=== PATIENT | male | born 1970 | race Caucasian/White ===

== ENCOUNTER 2016-12-06 12:31 | Inpatient (IN) | payer MEDICAID ==
[~2016-12-06] VITALS: Ht 167.6 cm; Wt 62.1 kg
[~2016-12-06 12:31] MED LIST: CAPT12.53 PO; LACT10SO7 PO; LEVO100T GT; RIFA500P3 PO; SEVE800T PO; TIOT18CA3 IH
[2016-12-06] MEDS ORDERED: ADENOSINE 6 MG/2 ML VIAL ONE (12:40)
[2016-12-06] MEDS ORDERED: IV SET PRIMARY 1 EA INFUS.SET MC ONE (12:40)
[2016-12-06] MEDS ORDERED: IV NS 0.9% 1,000 ML ONE (12:40)
[2016-12-06 12:57] LABS: BASOPHILS # (AUTO) 0.1 /CMM (0.0-0.2); BASOPHILS % (AUTO) 1.4 % (0.0-2.0); EOSINOPHILS # (AUTO) 0.3 /CMM (0.0-0.7); EOSINOPHILS % (AUTO) 5.5 % (0.0-6.0); HEMATOCRIT 36 % (39-51); HEMOGLOBIN 11.9 g/dL (13.5-17.5); LYMPHOCYTES # (AUTO) 0.8 /CMM (0.8-4.8); MEAN CORPUSCULAR HEMOGLOBIN 32 PG (26.0-33.0); MEAN CORPUSCULAR HGB CONC 33 g/dl (31.0-36.0); MEAN CORPUSCULAR VOLUME 97 fL (80-96); MONOCYTES # (AUTO) 0.6 /CMM (0.1-1.30); MONOCYTES % (AUTO) 10.5 % (2.0-12.0); NEUTROPHILS # (AUTO) 3.6 /CMM (1.8-8.9); NEUTROPHILS % (AUTO) 68.6 % (43.0-81.0); PLATELET COUNT (AUTO) 69 /CMM (150-450); RDW COEFFICIENT OF VARIATION 14.2 (11.5-15.0); RED BLOOD CELL COUNT(AUTO) 3.72 MIL/uL (4.5-6.0); WHITE BLOOD COUNT (AUTO) 5.4 K/uL (4.3-11.0)
[2016-12-06 13:08] LABS: CALCIUM, SERUM 8.7 mg/dL (8.5-10.1); CREATININE 5.6 mg/dL (0.6-1.3); POTASSIUM 4.4 mmol/L (3.5-5.1)
[2016-12-06 13:10] LABS: INR 1.17 (0.87-1.13); PROTHROMBIN TIME 12.3 SECS (9.5-12.7)
[2016-12-06] MEDS ORDERED: ASPIRIN 325 MG TABLET ONE (13:10)
[2016-12-06] MEDS ORDERED: DIGOXIN INJ 0.5 MG/2 ML AMPUL ONE (13:10)
[2016-12-06 13:17] LABS: TROPONIN I 0.043 ng/mL (0.00-0.056)
[2016-12-06] MEDS ORDERED: DIGOXIN INJ 0.5 MG/2 ML AMPUL IV ONE (13:30)
[2016-12-06] MEDS ORDERED: ASPIRIN 325 MG TABLET PO ONE (13:30)
[2016-12-06] MEDS ORDERED: ADENOSINE 6 MG/2 ML VIAL IVP ONE ×2 (14:00)
[2016-12-06 15:17] LABS: BAND % (MANUAL) 1 % (0.0-5.0); EOSINOPHILS % (MANUAL) 5 % (0-4); LYMPHOCYTES % (MANUAL) 10 % (16-48); MONOCYTES % (MANUAL) 10 % (0-11.0); NEUTROPHILS % (MANUAL) 74 (42-76)
[2016-12-06 15:51] LABS: ALBUMIN 3.8 g/dL (3.4-5.0); BILIRUBIN,DIRECT 0.2 mg/dL (0.0-0.2); BILIRUBIN,TOTAL 0.8 mg/dL (0.2-1.0); MAGNESIUM 2.1 mg/dL (1.8-2.4); PHOSPHORUS 4.6 mg/dL (2.5-4.9); TOTAL PROTEIN, SERUM 8.4 g/dL (6.4-8.2)
[2016-12-06] MEDS ORDERED: ESOM20CA PO (15:56)
[2016-12-06] MEDS ORDERED: CHOL200026 PO (15:56)
[2016-12-06] MEDS ORDERED: HYDR-3026 PO (15:56)
[2016-12-06 16:00] VITALS: BP 95/36
[2016-12-06] MEDS: LEVOTHYROXINE SODIUM 100 MCG TABLET GT SCH (16:00)
[2016-12-06] MEDS ORDERED: ONDANSETRON HCL/PF 4 MG/2 ML VIAL IVP PRN (16:00)
[2016-12-06] MEDS ORDERED: ZOLPIDEM TARTRATE 5 MG TABLET GT PRN (16:00)
[2016-12-06] MEDS: SEVELAMER CARBONATE 0.8 GM POWD.PACK GT SCH (16:12)
[2016-12-06] MEDS ORDERED: RIFAXIMIN 550 MG TABLET PO SCH (17:00)
[2016-12-06 20:00] VITALS: BP 91/40
[2016-12-06] MEDS: LACTULOSE 10 G/15 ML UDC (PYXIS) PO SCH (20:17)
[2016-12-06 20:18] VITALS: BP 91/40
[2016-12-06] MEDS ORDERED: LACTULOSE 10 G/15 ML UDC (PYXIS) GT SCH (21:00)
[2016-12-07] VITALS: BP 90/42
[2016-12-07 04:00] VITALS: BP 85/39
[2016-12-07] MEDS: LACTULOSE 10 G/15 ML UDC (PYXIS) PO SCH ×3 (04:10→21:55)
[2016-12-07] MEDS: IPRATROPIUM NEB FS 0.5 MG/2.5 ML AMPUL.NEB NEB SCH ×4 (07:12→19:41)
[2016-12-07 07:24] LABS: BASOPHILS # (AUTO) 0.1 /CMM (0.0-0.2); EOSINOPHILS # (AUTO) 0.4 /CMM (0.0-0.7); EOSINOPHILS % (AUTO) 8.4 % (0.0-6.0); HEMATOCRIT 32 % (39-51); HEMOGLOBIN 10.6 g/dL (13.5-17.5); LYMPHOCYTES % (AUTO) 22.3 % (20.0-44.0); MEAN CORPUSCULAR HEMOGLOBIN 32 PG (26.0-33.0); MEAN CORPUSCULAR HGB CONC 33 g/dl (31.0-36.0); MEAN CORPUSCULAR VOLUME 95 fL (80-96); MONOCYTES # (AUTO) 0.7 /CMM (0.1-1.30); MONOCYTES % (AUTO) 14.8 % (2.0-12.0); NEUTROPHILS # (AUTO) 2.3 /CMM (1.8-8.9); NEUTROPHILS % (AUTO) 52.5 % (43.0-81.0); PLATELET COUNT (AUTO) 68 /CMM (150-450); RDW COEFFICIENT OF VARIATION 15.2 (11.5-15.0); RED BLOOD CELL COUNT(AUTO) 3.36 MIL/uL (4.5-6.0); WHITE BLOOD COUNT (AUTO) 4.4 K/uL (4.3-11.0)
[2016-12-07] MEDS: LEVOTHYROXINE SODIUM 100 MCG TABLET GT SCH (07:30)
[2016-12-07 07:35] LABS: CALCIUM, SERUM 8.6 mg/dL (8.5-10.1); CREATININE 6.6 mg/dL (0.6-1.3); MAGNESIUM 2.3 mg/dL (1.8-2.4); PHOSPHORUS 5.2 mg/dL (2.5-4.9); POTASSIUM 4.5 mmol/L (3.5-5.1)
[2016-12-07] MEDS: SEVELAMER CARBONATE 0.8 GM POWD.PACK GT SCH ×3 (07:51→17:12)
[2016-12-07 07:55] LABS: DIGOXIN 0.49 ng/mL (0.90-2.00)
[2016-12-07 08:00] VITALS: BP 91/41
[2016-12-07 08:48] LABS: EOSINOPHILS % (MANUAL) 11 % (0-4); LYMPHOCYTES % (MANUAL) 27 % (16-48); MONOCYTES % (MANUAL) 12 % (0-11.0); NEUTROPHILS % (MANUAL) 50 (42-76)
[2016-12-07 12:00] VITALS: BP 86/42
[2016-12-07 16:00] VITALS: BP 97/40
[2016-12-07] MEDS ORDERED: DIGOXIN INJ 0.5 MG/2 ML AMPUL IV ONE (16:30)
[2016-12-07 20:00] VITALS: BP 91/39
[2016-12-08] VITALS (31 sets, daily range): BP systolic 70–123; BP diastolic 37–89
[2016-12-08] MEDS: IPRATROPIUM NEB FS 0.5 MG/2.5 ML AMPUL.NEB NEB SCH ×4 (01:26→20:02)
[2016-12-08] MEDS: LACTULOSE 10 G/15 ML UDC (PYXIS) PO SCH ×3 (05:00→21:02)
[2016-12-08 07:03] LABS: BASOPHILS # (AUTO) 0.1 /CMM (0.0-0.2); BASOPHILS % (AUTO) 2.2 % (0.0-2.0); EOSINOPHILS # (AUTO) 0.3 /CMM (0.0-0.7); EOSINOPHILS % (AUTO) 6.9 % (0.0-6.0); HEMATOCRIT 32 % (39-51); HEMOGLOBIN 10.7 g/dL (13.5-17.5); LYMPHOCYTES # (AUTO) 0.7 /CMM (0.8-4.8); LYMPHOCYTES % (AUTO) 16.4 % (20.0-44.0); MEAN CORPUSCULAR HEMOGLOBIN 32 PG (26.0-33.0); MEAN CORPUSCULAR HGB CONC 33 g/dl (31.0-36.0); MEAN CORPUSCULAR VOLUME 96 fL (80-96); MONOCYTES # (AUTO) 0.7 /CMM (0.1-1.30); MONOCYTES % (AUTO) 15.4 % (2.0-12.0); NEUTROPHILS # (AUTO) 2.6 /CMM (1.8-8.9); NEUTROPHILS % (AUTO) 59.1 % (43.0-81.0); PLATELET COUNT (AUTO) 66 /CMM (150-450); RDW COEFFICIENT OF VARIATION 14.7 (11.5-15.0); RED BLOOD CELL COUNT(AUTO) 3.34 MIL/uL (4.5-6.0); WHITE BLOOD COUNT (AUTO) 4.4 K/uL (4.3-11.0)
[2016-12-08 07:20] LABS: INR 1.17 (0.87-1.13); PROTHROMBIN TIME 12.6 SECS (9.5-12.7)
[2016-12-08 07:27] LABS: EOSINOPHILS % (MANUAL) 6 % (0-4); LYMPHOCYTES % (MANUAL) 17 % (16-48); MONOCYTES % (MANUAL) 21 % (0-11.0); NEUTROPHILS % (MANUAL) 56 (42-76)
[2016-12-08] MEDS: LEVOTHYROXINE SODIUM 100 MCG TABLET GT SCH (07:30)
[2016-12-08] MEDS ORDERED: TETRACAINE/BENZOCAINE/BUTAMBEN 56 GM SPRAY TP ONE (08:00)
[2016-12-08] MEDS: SEVELAMER CARBONATE 0.8 GM POWD.PACK GT SCH ×3 (08:00→17:31)
[2016-12-08 09:20] LABS: ABG BASE EXCESS -7.6 mmol/L; ABG OXYGEN SATURATION 98.7 % (92.0-98.5); ABG PH 7.328 (7.350-7.450); ABG PO2 202.5 mmHg (75.0-100.0); AaDO2 115.8 mmHg; COHb 0.8 % (0.5-1.5); MetHb 0.6 % (0.0-1.5); O2Hb 97.3 % (94.0-97.0); PEEP,BG 5 cm H2O; SITE, ABG Right Radial; VT, ABG 500 mL
[2016-12-08 09:29] LABS: ALBUMIN 3.1 g/dL (3.4-5.0); BILIRUBIN,TOTAL 0.6 mg/dL (0.2-1.0); CALCIUM, SERUM 8.4 mg/dL (8.5-10.1); CREATININE 5.7 mg/dL (0.6-1.3); MAGNESIUM 2.1 mg/dL (1.8-2.4); PHOSPHORUS 4.4 mg/dL (2.5-4.9); POTASSIUM 4.2 mmol/L (3.5-5.1); TOTAL PROTEIN, SERUM 6.9 g/dL (6.4-8.2)
[2016-12-08] MEDS ORDERED: LORAZEPAM INJ 2 MG/ML VIAL IV ONE (10:00)
[2016-12-08] MEDS ORDERED: IV SET PRIMARY PUMP SET 1 EA INFUS.SET MC ONE ×3 (11:29→20:58)
[2016-12-08] MEDS: PANTOPRAZOLE 40 MG VIAL IV SCH (11:33)
[2016-12-08] MEDS: PROPOFOL 100 ML IV PRN ×3 (11:58→20:50)
[2016-12-08] MEDS: NOREPINEPHRINE 16 MG in IV D5W 500 ML IV PRN (13:48)
[2016-12-08] MEDS ORDERED: ANESTHESIA TRAY IN PYXIS 1 EA TRAY MC ONE (14:12)
[2016-12-08] MEDS ORDERED: RENAL NOVASOURCE 1,000 ML BOTTLE GT PRN (14:30)
[2016-12-08] MEDS: RENAL NOVASOURCE 1,000 ML BOTTLE GT PRN (15:57)
[2016-12-09] VITALS (112 sets, daily range): BP systolic 74–138; BP diastolic 35–68
[2016-12-09] MEDS: PROPOFOL 100 ML IV PRN ×7 (00:27→23:10)
[2016-12-09] MEDS: IPRATROPIUM NEB FS 0.5 MG/2.5 ML AMPUL.NEB NEB SCH ×4 (01:37→19:55)
[2016-12-09] MEDS ORDERED: IV NS 0.9% 250 ML IV ONE (02:13)
[2016-12-09] MEDS: LACTULOSE 10 G/15 ML UDC (PYXIS) PO SCH ×3 (04:40→22:01)
[2016-12-09 04:54] LABS: EOSINOPHILS % (AUTO) 0.1 % (0.0-6.0); HEMATOCRIT 33 % (39-51); LYMPHOCYTES # (AUTO) 0.3 /CMM (0.8-4.8); LYMPHOCYTES % (AUTO) 3.3 % (20.0-44.0); MEAN CORPUSCULAR HEMOGLOBIN 31 PG (26.0-33.0); MEAN CORPUSCULAR HGB CONC 33 g/dl (31.0-36.0); MEAN CORPUSCULAR VOLUME 95 fL (80-96); MONOCYTES # (AUTO) 0.5 /CMM (0.1-1.30); NEUTROPHILS # (AUTO) 8.2 /CMM (1.8-8.9); NEUTROPHILS % (AUTO) 90.6 % (43.0-81.0); PLATELET COUNT (AUTO) 61 /CMM (150-450); RDW COEFFICIENT OF VARIATION 14.5 (11.5-15.0); RED BLOOD CELL COUNT(AUTO) 3.51 MIL/uL (4.5-6.0)
[2016-12-09 05:19] LABS: ALBUMIN 3.1 g/dL (3.4-5.0); BILIRUBIN,TOTAL 0.9 mg/dL (0.2-1.0); CALCIUM, SERUM 8.3 mg/dL (8.5-10.1); CREATININE 7.4 mg/dL (0.6-1.3); MAGNESIUM 1.9 mg/dL (1.8-2.4); PHOSPHORUS 3.8 mg/dL (2.5-4.9); POTASSIUM 4.2 mmol/L (3.5-5.1)
[2016-12-09 05:32] LABS: BAND % (MANUAL) 15 % (0.0-5.0); LYMPHOCYTES % (MANUAL) 4 % (16-48); MONOCYTES % (MANUAL) 6 % (0-11.0); NEUTROPHILS % (MANUAL) 75 (42-76)
[2016-12-09] MEDS: SEVELAMER CARBONATE 0.8 GM POWD.PACK GT SCH ×3 (08:15→17:43)
[2016-12-09] MEDS: LEVOTHYROXINE SODIUM 100 MCG TABLET GT SCH (08:16)
[2016-12-09] MEDS ORDERED: VANCOMYCIN 1 GM in IV D5W 250ml IV ONE (09:36)
[2016-12-09] MEDS ORDERED: IV SET PRIMARY PUMP SET 1 EA INFUS.SET MC ONE ×2 (09:38→10:47)
[2016-12-09] MEDS ORDERED: SECONDARY IV SET 1 EA INFUS.SET MC ONE (09:38)
[2016-12-09] MEDS ORDERED: FEE PK DOSING 1 MIN EA MC ONE (09:52)
[2016-12-09] MEDS: ACETAMINOPHEN 650 MG/20.3 ML UDC GT PRN (10:31)
[2016-12-09] MEDS: PANTOPRAZOLE 40 MG VIAL IV SCH (11:16)
[2016-12-09] MEDS: NOREPINEPHRINE 16 MG in IV D5W 500 ML IV PRN (11:16)
[2016-12-09] MEDS: PIPERACILLIN /TAZOBACTAM 2.25 G in IV D5W 50 ML IV SCH ×2 (11:16→17:43)
[2016-12-09] MEDS ORDERED: Z GUARD REMEDY 4 OZ OINT TP PRN (13:00)
[2016-12-09] MEDS: RENAL NOVASOURCE 1,000 ML BOTTLE GT PRN (17:43)
[2016-12-09] MEDS ORDERED: VANCOMYCIN 500 MG in IV D5W 100ml IV ONE (21:00)
[2016-12-10] VITALS (112 sets, daily range): BP systolic 62–115; BP diastolic 28–51
[2016-12-10] MEDS: IPRATROPIUM NEB FS 0.5 MG/2.5 ML AMPUL.NEB NEB SCH ×4 (01:18→20:00)
[2016-12-10] MEDS: PIPERACILLIN /TAZOBACTAM 2.25 G in IV D5W 50 ML IV SCH ×3 (02:05→17:20)
[2016-12-10] MEDS: PROPOFOL 100 ML IV PRN ×6 (03:35→23:59)
[2016-12-10] MEDS: LACTULOSE 10 G/15 ML UDC (PYXIS) PO SCH ×3 (04:09→20:32)
[2016-12-10 06:33] LABS: BASOPHILS % (AUTO) 0.5 % (0.0-2.0); EOSINOPHILS # (AUTO) 0.3 /CMM (0.0-0.7); EOSINOPHILS % (AUTO) 5.5 % (0.0-6.0); HEMATOCRIT 31 % (39-51); HEMOGLOBIN 10.3 g/dL (13.5-17.5); LYMPHOCYTES # (AUTO) 0.2 /CMM (0.8-4.8); LYMPHOCYTES % (AUTO) 4.7 % (20.0-44.0); MEAN CORPUSCULAR HEMOGLOBIN 32 PG (26.0-33.0); MEAN CORPUSCULAR HGB CONC 33 g/dl (31.0-36.0); MEAN CORPUSCULAR VOLUME 96 fL (80-96); MONOCYTES # (AUTO) 0.1 /CMM (0.1-1.30); MONOCYTES % (AUTO) 2.1 % (2.0-12.0); NEUTROPHILS # (AUTO) 4.2 /CMM (1.8-8.9); NEUTROPHILS % (AUTO) 87.2 % (43.0-81.0); RDW COEFFICIENT OF VARIATION 14.6 (11.5-15.0); RED BLOOD CELL COUNT(AUTO) 3.27 MIL/uL (4.5-6.0); WHITE BLOOD COUNT (AUTO) 4.8 K/uL (4.3-11.0)
[2016-12-10 06:34] LABS: PLATELET COUNT (AUTO) 40 /CMM (150-450)
[2016-12-10 06:56] LABS: CALCIUM, SERUM 8.4 mg/dL (8.5-10.1); CREATININE 5.8 mg/dL (0.6-1.3); MAGNESIUM 1.7 mg/dL (1.8-2.4); PHOSPHORUS 3.4 mg/dL (2.5-4.9); POTASSIUM 4.2 mmol/L (3.5-5.1)
[2016-12-10 07:07] LABS: BAND % (MANUAL) 31 % (0.0-5.0); EOSINOPHILS % (MANUAL) 4 % (0-4); LYMPHOCYTES % (MANUAL) 6 % (16-48); METAMYELOCYTES % 3 % (0-0); MONOCYTES % (MANUAL) 7 % (0-11.0); MYELOCYTES % 1 % (0-0); NEUTROPHILS % (MANUAL) 48 (42-76)
[2016-12-10] MEDS: LEVOTHYROXINE SODIUM 100 MCG TABLET GT SCH (08:35)
[2016-12-10] MEDS: SEVELAMER CARBONATE 0.8 GM POWD.PACK GT SCH ×3 (08:35→17:20)
[2016-12-10] MEDS: PANTOPRAZOLE 40 MG VIAL IV SCH (09:30)
[2016-12-10] MEDS: NOREPINEPHRINE 16 MG in IV D5W 500 ML IV PRN ×2 (13:56→15:44)
[2016-12-10] MEDS ORDERED: IV SET PRIMARY PUMP SET 1 EA INFUS.SET MC ONE ×2 (15:35→20:03)
[2016-12-10] MEDS: RENAL NOVASOURCE 1,000 ML BOTTLE GT PRN (15:43)
[2016-12-10] MEDS: ACETAMINOPHEN 650 MG/20.3 ML UDC GT PRN (17:20)
[2016-12-10] MEDS: FAMOTIDINE/PF INJ 20 MG/2 ML VIAL IV SCH (20:32)
[2016-12-11] VITALS (100 sets, daily range): BP systolic 63–112; BP diastolic 33–54
[2016-12-11] MEDS: IPRATROPIUM NEB FS 0.5 MG/2.5 ML AMPUL.NEB NEB SCH ×4 (01:32→20:18)
[2016-12-11] MEDS: PIPERACILLIN /TAZOBACTAM 2.25 G in IV D5W 50 ML IV SCH ×3 (03:55→17:12)
[2016-12-11] MEDS: PROPOFOL 100 ML IV PRN ×2 (04:37→08:51)
[2016-12-11] MEDS: LACTULOSE 10 G/15 ML UDC (PYXIS) PO SCH ×3 (04:40→20:51)
[2016-12-11 04:55] LABS: BASOPHILS % (AUTO) 0.1 % (0.0-2.0); EOSINOPHILS # (AUTO) 0.3 /CMM (0.0-0.7); EOSINOPHILS % (AUTO) 3.2 % (0.0-6.0); HEMATOCRIT 31 % (39-51); LYMPHOCYTES # (AUTO) 0.3 /CMM (0.8-4.8); LYMPHOCYTES % (AUTO) 3.2 % (20.0-44.0); MEAN CORPUSCULAR HEMOGLOBIN 32 PG (26.0-33.0); MEAN CORPUSCULAR HGB CONC 33 g/dl (31.0-36.0); MEAN CORPUSCULAR VOLUME 97 fL (80-96); MONOCYTES # (AUTO) 1.4 /CMM (0.1-1.30); MONOCYTES % (AUTO) 13.9 % (2.0-12.0); NEUTROPHILS # (AUTO) 8.1 /CMM (1.8-8.9); NEUTROPHILS % (AUTO) 79.6 % (43.0-81.0); RED BLOOD CELL COUNT(AUTO) 3.16 MIL/uL (4.5-6.0); WHITE BLOOD COUNT (AUTO) 10.1 K/uL (4.3-11.0)
[2016-12-11 05:16] LABS: CALCIUM, SERUM 8.8 mg/dL (8.5-10.1); MAGNESIUM 1.9 mg/dL (1.8-2.4); PHOSPHORUS 3.7 mg/dL (2.5-4.9); PLATELET COUNT (AUTO) 43 /CMM (150-450); POTASSIUM 5.1 mmol/L (3.5-5.1)
[2016-12-11 06:41] LABS: BAND % (MANUAL) 15 % (0.0-5.0); EOSINOPHILS % (MANUAL) 2 % (0-4); LYMPHOCYTES % (MANUAL) 6 % (16-48); METAMYELOCYTES % 3 % (0-0); MONOCYTES % (MANUAL) 9 % (0-11.0); MYELOCYTES % 1 % (0-0); NEUTROPHILS % (MANUAL) 64 (42-76)
[2016-12-11] MEDS: SEVELAMER CARBONATE 0.8 GM POWD.PACK GT SCH ×3 (08:11→17:12)
[2016-12-11] MEDS: LEVOTHYROXINE SODIUM 100 MCG TABLET GT SCH (08:12)
[2016-12-11] MEDS: FAMOTIDINE/PF INJ 20 MG/2 ML VIAL IV SCH ×2 (08:12→20:51)
[2016-12-11 14:19] LABS: ABG BASE EXCESS -1.2 mmol/L; ABG OXYGEN SATURATION 98.9 % (92.0-98.5); ABG PCO2 35.7 mmHg (35.0-45.0); ABG PH 7.424 (7.350-7.450); ABG PO2 235.1 mmHg (75.0-100.0); AaDO2 297.8 mmHg; MetHb 0.8 % (0.0-1.5); O2Hb 97.1 % (94.0-97.0); SITE, ABG Right Radial; VENT MODE, BG 80% NRB MASK
[2016-12-11] MEDS ORDERED: IV NS 0.9% 250 ML IV ONE (17:06)
[2016-12-11] MEDS: RENAL NOVASOURCE 1,000 ML BOTTLE GT PRN (17:12)
[2016-12-11] MEDS: NOREPINEPHRINE 16 MG in IV D5W 500 ML IV PRN (17:12)
[2016-12-12] VITALS (80 sets, daily range): BP systolic 81–103; BP diastolic 31–64
[2016-12-12] MEDS: PIPERACILLIN /TAZOBACTAM 2.25 G in IV D5W 50 ML IV SCH ×3 (01:34→17:37)
[2016-12-12] MEDS: IPRATROPIUM NEB FS 0.5 MG/2.5 ML AMPUL.NEB NEB SCH ×4 (01:50→20:11)
[2016-12-12 04:46] LABS: EOSINOPHILS # (AUTO) 0.4 /CMM (0.0-0.7); EOSINOPHILS % (AUTO) 5.3 % (0.0-6.0); HEMATOCRIT 30 % (39-51); HEMOGLOBIN 9.9 g/dL (13.5-17.5); LYMPHOCYTES # (AUTO) 0.4 /CMM (0.8-4.8); LYMPHOCYTES % (AUTO) 4.7 % (20.0-44.0); MEAN CORPUSCULAR HEMOGLOBIN 32 PG (26.0-33.0); MEAN CORPUSCULAR HGB CONC 33 g/dl (31.0-36.0); MEAN CORPUSCULAR VOLUME 96 fL (80-96); MONOCYTES # (AUTO) 0.4 /CMM (0.1-1.30); MONOCYTES % (AUTO) 4.6 % (2.0-12.0); NEUTROPHILS # (AUTO) 6.9 /CMM (1.8-8.9); NEUTROPHILS % (AUTO) 85.4 % (43.0-81.0); RDW COEFFICIENT OF VARIATION 15.1 (11.5-15.0); RED BLOOD CELL COUNT(AUTO) 3.11 MIL/uL (4.5-6.0)
[2016-12-12 04:55] LABS: PLATELET COUNT (AUTO) 37 /CMM (150-450)
[2016-12-12 05:02] LABS: CALCIUM, SERUM 9.3 mg/dL (8.5-10.1); CREATININE 5.9 mg/dL (0.6-1.3); PHOSPHORUS 3.2 mg/dL (2.5-4.9); POTASSIUM 4.6 mmol/L (3.5-5.1)
[2016-12-12] MEDS: LACTULOSE 10 G/15 ML UDC (PYXIS) PO SCH ×3 (05:21→21:11)
[2016-12-12 05:38] LABS: BAND % (MANUAL) 14 % (0.0-5.0); EOSINOPHILS % (MANUAL) 5 % (0-4); LYMPHOCYTES % (MANUAL) 6 % (16-48); MONOCYTES % (MANUAL) 7 % (0-11.0); NEUTROPHILS % (MANUAL) 68 (42-76)
[2016-12-12] MEDS ORDERED: EPOETIN ALFA (10,000 UNIT) 10,000 UNIT/ML VIAL SQ ONE (08:00)
[2016-12-12] MEDS: LEVOTHYROXINE SODIUM 100 MCG TABLET GT SCH (10:36)
[2016-12-12] MEDS: SEVELAMER CARBONATE 0.8 GM POWD.PACK GT SCH ×3 (10:37→17:35)
[2016-12-12] MEDS: FAMOTIDINE/PF INJ 20 MG/2 ML VIAL IV SCH ×2 (10:39→21:11)
[2016-12-12] MEDS ORDERED: FUROSEMIDE 20 MG/2 ML VIAL IV ONE (16:30)
[2016-12-12] MEDS: VANCOMYCIN 500 MG in IV D5W 100 ML IV PRN (17:36)
[2016-12-12] MEDS ORDERED: IV SET PRIMARY PUMP SET 1 EA INFUS.SET MC ONE ×2 (19:31→20:43)
[2016-12-12] MEDS: NOREPINEPHRINE 16 MG in IV D5W 500 ML IV PRN (19:36)
[2016-12-12] MEDS: AMIODARONE 900 MG in IV D5W 482 ML IV PRN (20:55)
[2016-12-12] MEDS ORDERED: AMIODARONE 150 MG in IV D5W 100 ML IV ONE (21:00)
[2016-12-12 21:02] LABS: CALCIUM, SERUM 9.1 mg/dL (8.5-10.1)
[2016-12-12 21:10] LABS: TROPONIN I 0.04 ng/mL (0.00-0.056)
[2016-12-12] MEDS: RENAL NOVASOURCE 1,000 ML BOTTLE GT PRN (21:11)
[2016-12-12] MEDS ORDERED: IV NS 0.9% 250 ML IV ONE (21:18)
[2016-12-13] VITALS (85 sets, daily range): BP systolic 77–116; BP diastolic 43–61
[2016-12-13] MEDS: PIPERACILLIN /TAZOBACTAM 2.25 G in IV D5W 50 ML IV SCH ×3 (02:12→17:12)
[2016-12-13] MEDS: IPRATROPIUM NEB FS 0.5 MG/2.5 ML AMPUL.NEB NEB SCH ×4 (02:25→20:25)
[2016-12-13 05:04] LABS: BASOPHILS % (AUTO) 0.3 % (0.0-2.0); EOSINOPHILS # (AUTO) 0.4 /CMM (0.0-0.7); EOSINOPHILS % (AUTO) 7.2 % (0.0-6.0); HEMATOCRIT 31 % (39-51); HEMOGLOBIN 10.5 g/dL (13.5-17.5); LYMPHOCYTES # (AUTO) 0.4 /CMM (0.8-4.8); LYMPHOCYTES % (AUTO) 7.4 % (20.0-44.0); MEAN CORPUSCULAR HEMOGLOBIN 32 PG (26.0-33.0); MEAN CORPUSCULAR HGB CONC 33 g/dl (31.0-36.0); MEAN CORPUSCULAR VOLUME 95 fL (80-96); MONOCYTES # (AUTO) 0.6 /CMM (0.1-1.30); MONOCYTES % (AUTO) 10.6 % (2.0-12.0); NEUTROPHILS # (AUTO) 4.2 /CMM (1.8-8.9); NEUTROPHILS % (AUTO) 74.5 % (43.0-81.0); RDW COEFFICIENT OF VARIATION 15.4 (11.5-15.0); RED BLOOD CELL COUNT(AUTO) 3.31 MIL/uL (4.5-6.0); WHITE BLOOD COUNT (AUTO) 5.7 K/uL (4.3-11.0)
[2016-12-13 05:13] LABS: PLATELET COUNT (AUTO) 34 /CMM (150-450)
[2016-12-13 05:17] LABS: CALCIUM, SERUM 9.7 mg/dL (8.5-10.1); CREATININE 4.4 mg/dL (0.6-1.3); PHOSPHORUS 2.1 mg/dL (2.5-4.9); POTASSIUM 3.9 mmol/L (3.5-5.1)
[2016-12-13] MEDS: LACTULOSE 10 G/15 ML UDC (PYXIS) PO SCH ×3 (05:34→20:14)
[2016-12-13 05:39] LABS: EOSINOPHILS % (MANUAL) 6 % (0-4); LYMPHOCYTES % (MANUAL) 8 % (16-48); MONOCYTES % (MANUAL) 9 % (0-11.0); NEUTROPHILS % (MANUAL) 77 (42-76)
[2016-12-13] MEDS: SEVELAMER CARBONATE 0.8 GM POWD.PACK GT SCH ×3 (08:06→17:05)
[2016-12-13] MEDS: FAMOTIDINE/PF INJ 20 MG/2 ML VIAL IV SCH ×2 (08:06→20:14)
[2016-12-13] MEDS: LEVOTHYROXINE SODIUM 100 MCG TABLET GT SCH (08:06)
[2016-12-13] MEDS ORDERED: EPOETIN ALFA (2000 UNIT) 2,000 UNIT/ML VIAL SQ ONE (09:00)
[2016-12-13] MEDS ORDERED: DIGOXIN INJ 0.5 MG/2 ML AMPUL IV ONE (14:00)
[2016-12-13] MEDS ORDERED: NEUTRA PHOS 1 POWD.PACKET GT ONE (14:00)
[2016-12-13] MEDS: NOREPINEPHRINE 16 MG in IV D5W 500 ML IV PRN (16:40)
[2016-12-13] MEDS: ACETAMINOPHEN 650 MG/20.3 ML UDC GT PRN (17:46)
[2016-12-13] MEDS: AMIODARONE 900 MG in IV D5W 482 ML IV PRN (20:15)
[2016-12-13 21:19] LABS: INR 1.19 (0.87-1.13); PROTHROMBIN TIME 12.9 SECS (9.5-12.7)
[2016-12-13 21:20] LABS: D-DIMER 31.1 mg/L(FEU (0.17-0.50)
[2016-12-14] VITALS (82 sets, daily range): BP systolic 79–126; BP diastolic 37–94
[2016-12-14] MEDS: PIPERACILLIN /TAZOBACTAM 2.25 G in IV D5W 50 ML IV SCH ×3 (01:47→17:18)
[2016-12-14] MEDS: IPRATROPIUM NEB FS 0.5 MG/2.5 ML AMPUL.NEB NEB SCH ×4 (02:05→19:37)
[2016-12-14 05:21] LABS: BASOPHILS % (AUTO) 0.1 % (0.0-2.0); EOSINOPHILS # (AUTO) 0.4 /CMM (0.0-0.7); EOSINOPHILS % (AUTO) 5.5 % (0.0-6.0); HEMATOCRIT 31 % (39-51); HEMOGLOBIN 10.3 g/dL (13.5-17.5); LYMPHOCYTES # (AUTO) 0.4 /CMM (0.8-4.8); LYMPHOCYTES % (AUTO) 5.1 % (20.0-44.0); MEAN CORPUSCULAR HEMOGLOBIN 32 PG (26.0-33.0); MEAN CORPUSCULAR HGB CONC 34 g/dl (31.0-36.0); MEAN CORPUSCULAR VOLUME 95 fL (80-96); MONOCYTES # (AUTO) 0.6 /CMM (0.1-1.30); MONOCYTES % (AUTO) 7.3 % (2.0-12.0); NEUTROPHILS # (AUTO) 6.6 /CMM (1.8-8.9); RDW COEFFICIENT OF VARIATION 14.9 (11.5-15.0); RED BLOOD CELL COUNT(AUTO) 3.23 MIL/uL (4.5-6.0); WHITE BLOOD COUNT (AUTO) 8.1 K/uL (4.3-11.0)
[2016-12-14 05:25] LABS: PLATELET COUNT (AUTO) 43 /CMM (150-450)
[2016-12-14 05:45] LABS: CALCIUM, SERUM 9.5 mg/dL (8.5-10.1); CREATININE 5.6 mg/dL (0.6-1.3); MAGNESIUM 2.2 mg/dL (1.8-2.4); PHOSPHORUS 2.8 mg/dL (2.5-4.9); POTASSIUM 4.2 mmol/L (3.5-5.1)
[2016-12-14] MEDS: LACTULOSE 10 G/15 ML UDC (PYXIS) PO SCH (06:00)
[2016-12-14] MEDS: RENAL NOVASOURCE 1,000 ML BOTTLE GT PRN (06:24)
[2016-12-14 06:37] LABS: BAND % (MANUAL) 4 % (0.0-5.0); EOSINOPHILS % (MANUAL) 2 % (0-4); LYMPHOCYTES % (MANUAL) 5 % (16-48); MONOCYTES % (MANUAL) 13 % (0-11.0); NEUTROPHILS % (MANUAL) 76 (42-76)
[2016-12-14] MEDS ORDERED: IV NS 0.9% 250 ML IV ONE (06:42)
[2016-12-14] MEDS: LEVOTHYROXINE SODIUM 100 MCG TABLET GT SCH (08:05)
[2016-12-14] MEDS: SEVELAMER CARBONATE 0.8 GM POWD.PACK GT SCH ×3 (08:05→17:18)
[2016-12-14] MEDS: FAMOTIDINE/PF INJ 20 MG/2 ML VIAL IV SCH ×2 (08:05→20:56)
[2016-12-14] MEDS ORDERED: EPOETIN ALFA (10,000 UNIT) 10,000 UNIT/ML VIAL SQ ONE (08:30)
[2016-12-14] MEDS: AMIODARONE 900 MG in IV D5W 482 ML IV PRN (17:17)
[2016-12-15] VITALS (39 sets, daily range): BP systolic 84–114; BP diastolic 34–59
[2016-12-15] MEDS: IPRATROPIUM NEB FS 0.5 MG/2.5 ML AMPUL.NEB NEB SCH ×4 (01:48→19:44)
[2016-12-15] MEDS: PIPERACILLIN /TAZOBACTAM 2.25 G in IV D5W 50 ML IV SCH ×3 (01:55→18:06)
[2016-12-15] MEDS ORDERED: IV NS 0.9% 250 ML IV ONE (04:37)
[2016-12-15] MEDS: IV NS 0.9% 500 ML IV PRN (04:55)
[2016-12-15 05:14] LABS: BASOPHILS % (AUTO) 0.1 % (0.0-2.0); EOSINOPHILS # (AUTO) 0.4 /CMM (0.0-0.7); EOSINOPHILS % (AUTO) 3.6 % (0.0-6.0); HEMATOCRIT 30 % (39-51); HEMOGLOBIN 10.1 g/dL (13.5-17.5); LYMPHOCYTES # (AUTO) 0.6 /CMM (0.8-4.8); LYMPHOCYTES % (AUTO) 5.6 % (20.0-44.0); MEAN CORPUSCULAR HEMOGLOBIN 32 PG (26.0-33.0); MEAN CORPUSCULAR HGB CONC 34 g/dl (31.0-36.0); MEAN CORPUSCULAR VOLUME 95 fL (80-96); MONOCYTES # (AUTO) 0.7 /CMM (0.1-1.30); MONOCYTES % (AUTO) 7.2 % (2.0-12.0); NEUTROPHILS # (AUTO) 8.6 /CMM (1.8-8.9); NEUTROPHILS % (AUTO) 83.5 % (43.0-81.0); RED BLOOD CELL COUNT(AUTO) 3.18 MIL/uL (4.5-6.0); WHITE BLOOD COUNT (AUTO) 10.3 K/uL (4.3-11.0)
[2016-12-15 05:20] LABS: PLATELET COUNT (AUTO) 42 /CMM (150-450)
[2016-12-15 05:32] LABS: CALCIUM, SERUM 9.6 mg/dL (8.5-10.1); CREATININE 5.2 mg/dL (0.6-1.3); MAGNESIUM 2.3 mg/dL (1.8-2.4); PHOSPHORUS 3.4 mg/dL (2.5-4.9); POTASSIUM 4.7 mmol/L (3.5-5.1)
[2016-12-15 06:08] LABS: BAND % (MANUAL) 5 % (0.0-5.0); EOSINOPHILS % (MANUAL) 5 % (0-4); LYMPHOCYTES % (MANUAL) 6 % (16-48); METAMYELOCYTES % 1 % (0-0); MONOCYTES % (MANUAL) 8 % (0-11.0); MYELOCYTES % 1 % (0-0); NEUTROPHILS % (MANUAL) 74 (42-76)
[2016-12-15] MEDS: SEVELAMER CARBONATE 0.8 GM POWD.PACK GT SCH (08:07)
[2016-12-15] MEDS: FAMOTIDINE/PF INJ 20 MG/2 ML VIAL IV SCH ×2 (08:07→21:47)
[2016-12-15] MEDS: LEVOTHYROXINE SODIUM 100 MCG TABLET GT SCH (08:07)
[2016-12-15] MEDS: AMIODARONE HCL 200 MG TABLET PO SCH (10:34)
[2016-12-15] MEDS: RENAL NOVASOURCE (8OZ) 1 EA BOX PO SCH ×2 (12:13→17:00)
[2016-12-15] MEDS: SEVELAMER CARBONATE 0.8 GM POWD.PACK PO SCH ×2 (12:13→17:50)
[2016-12-15] MEDS ORDERED: SECONDARY IV SET 1 EA INFUS.SET MC ONE ×2 (15:28→18:08)
[2016-12-15] MEDS: ALBUMIN 25% 25 GM in PREMIX 1 EA IV PRN ×2 (15:46→16:56)
[2016-12-15] MEDS ORDERED: VANCOMYCIN 1 GM in IV D5W 250 ML IV ONE (18:00)
[2016-12-16] VITALS (30 sets, daily range): BP systolic 82–113; BP diastolic 34–56
[2016-12-16] MEDS: IPRATROPIUM NEB FS 0.5 MG/2.5 ML AMPUL.NEB NEB SCH ×4 (01:15→20:18)
[2016-12-16] MEDS: PIPERACILLIN /TAZOBACTAM 2.25 G in IV D5W 50 ML IV SCH ×3 (02:37→17:34)
[2016-12-16] MEDS ORDERED: IV NS 0.9% 250 ML IV ONE (05:06)
[2016-12-16 05:09] LABS: CALCIUM, SERUM 9.6 mg/dL (8.5-10.1); CREATININE 4.7 mg/dL (0.6-1.3)
[2016-12-16] MEDS: IV NS 0.9% 250 ML IV PRN (05:14)
[2016-12-16] MEDS: IV NS 0.9% 500 ML IV PRN (05:15)
[2016-12-16] MEDS: RENAL NOVASOURCE (8OZ) 1 EA BOX PO SCH ×3 (07:45→17:33)
[2016-12-16] MEDS: AMIODARONE HCL 200 MG TABLET PO SCH (08:09)
[2016-12-16] MEDS: SEVELAMER CARBONATE 0.8 GM POWD.PACK PO SCH ×3 (08:09→17:34)
[2016-12-16] MEDS: LEVOTHYROXINE SODIUM 100 MCG TABLET PO SCH (08:10)
[2016-12-16] MEDS: FAMOTIDINE/PF INJ 20 MG/2 ML VIAL IV SCH ×2 (08:10→21:43)
[2016-12-16] MEDS: BISOPROLOL FUMARATE 5 MG TABLET PO SCH (12:20)
[2016-12-17] VITALS (29 sets, daily range): BP systolic 82–104; BP diastolic 23–62
[2016-12-17] MEDS: IPRATROPIUM NEB FS 0.5 MG/2.5 ML AMPUL.NEB NEB SCH ×4 (01:30→20:05)
[2016-12-17] MEDS: PIPERACILLIN /TAZOBACTAM 2.25 G in IV D5W 50 ML IV SCH ×3 (01:53→17:39)
[2016-12-17] MEDS: IV NS 0.9% 250 ML IV PRN (01:53)
[2016-12-17 05:31] LABS: CALCIUM, SERUM 9.8 mg/dL (8.5-10.1); POTASSIUM 3.9 mmol/L (3.5-5.1)
[2016-12-17] MEDS: IV NS 0.9% 500 ML IV PRN (05:45)
[2016-12-17] MEDS ORDERED: SECONDARY IV SET 1 EA INFUS.SET MC ONE (07:56)
[2016-12-17] MEDS: ALBUMIN 25% 25 GM in PREMIX 1 EA IV PRN (08:12)
[2016-12-17] MEDS: BISOPROLOL FUMARATE 5 MG TABLET PO SCH (09:00)
[2016-12-17] MEDS: RENAL NOVASOURCE (8OZ) 1 EA BOX PO SCH ×3 (09:18→17:39)
[2016-12-17] MEDS: AMIODARONE HCL 200 MG TABLET PO SCH (09:20)
[2016-12-17] MEDS: SEVELAMER CARBONATE 0.8 GM POWD.PACK PO SCH ×3 (09:20→17:39)
[2016-12-17] MEDS: FAMOTIDINE/PF INJ 20 MG/2 ML VIAL IV SCH ×2 (09:21→22:22)
[2016-12-17] MEDS: LEVOTHYROXINE SODIUM 100 MCG TABLET PO SCH (09:22)
[2016-12-17 11:01] LABS: ABG BASE EXCESS 1.5 mmol/L; ABG OXYGEN SATURATION 92.8 % (92.0-98.5); ABG PCO2 41.5 mmHg (35.0-45.0); ABG PH 7.418 (7.350-7.450); ABG PO2 69.1 mmHg (75.0-100.0); AaDO2 110.5 mmHg; COHb 1.7 % (0.5-1.5); O2Hb 90.3 % (94.0-97.0); SITE, ABG Right Radial; VENT MODE, BG NASAL CANNULA
[2016-12-18] VITALS: BP 98/40
[2016-12-18] MEDS: IPRATROPIUM NEB FS 0.5 MG/2.5 ML AMPUL.NEB NEB SCH ×4 (01:17→19:55)
[2016-12-18] MEDS: PIPERACILLIN /TAZOBACTAM 2.25 G in IV D5W 50 ML IV SCH ×3 (02:50→17:17)
[2016-12-18 04:00] VITALS: BP 101/40
[2016-12-18 07:05] LABS: CREATININE 5.8 mg/dL (0.6-1.3); POTASSIUM 3.7 mmol/L (3.5-5.1)
[2016-12-18 08:00] VITALS: BP 110/43
[2016-12-18] MEDS: LEVOTHYROXINE SODIUM 100 MCG TABLET PO SCH (08:10)
[2016-12-18] MEDS: RENAL NOVASOURCE (8OZ) 1 EA BOX PO SCH ×3 (08:10→17:17)
[2016-12-18] MEDS: BISOPROLOL FUMARATE 5 MG TABLET PO SCH (08:11)
[2016-12-18] MEDS: FAMOTIDINE/PF INJ 20 MG/2 ML VIAL IV SCH ×2 (08:11→21:39)
[2016-12-18] MEDS: SEVELAMER CARBONATE 0.8 GM POWD.PACK PO SCH ×3 (08:11→17:16)
[2016-12-18] MEDS: AMIODARONE HCL 200 MG TABLET PO SCH (08:11)
[2016-12-18 11:19] LABS: ABG BASE EXCESS -1.2 mmol/L; ABG OXYGEN SATURATION 97.4 % (92.0-98.5); ABG PCO2 37.6 mmHg (35.0-45.0); ABG PH 7.409 (7.350-7.450); ABG PO2 111.3 mmHg (75.0-100.0); AaDO2 72.9 mmHg; COHb 1.3 % (0.5-1.5); MetHb 0.9 % (0.0-1.5); O2Hb 95.3 % (94.0-97.0); SITE, ABG Right Radial; VENT MODE, BG NASAL CANNULA
[2016-12-18 12:00] VITALS: BP 122/42
[2016-12-18 16:00] VITALS: BP 100/45
[2016-12-18 20:00] VITALS: BP 112/57
[2016-12-18] MEDS ORDERED: SECONDARY IV SET 1 EA INFUS.SET MC ONE (20:55)
[2016-12-18] MEDS: ALBUMIN 25% 25 GM in PREMIX 1 EA IV PRN (22:00)
[2016-12-19] VITALS: BP 103/40
[2016-12-19] MEDS ORDERED: VANCOMYCIN 1 GM VIAL ONE (00:09)
[2016-12-19] MEDS ORDERED: SECONDARY IV SET 1 EA INFUS.SET MC ONE (00:09)
[2016-12-19] MEDS ORDERED: IV D5W 100 ML IV ONE (00:10)
[2016-12-19] MEDS: VANCOMYCIN 500 MG in IV D5W 100 ML IV PRN (00:23)
[2016-12-19] MEDS: IV NS 0.9% 250 ML IV PRN (00:29)
[2016-12-19] MEDS: IPRATROPIUM NEB FS 0.5 MG/2.5 ML AMPUL.NEB NEB SCH ×4 (01:55→20:20)
[2016-12-19] MEDS: PIPERACILLIN /TAZOBACTAM 2.25 G in IV D5W 50 ML IV SCH ×3 (02:13→17:51)
[2016-12-19 04:00] VITALS: BP 95/38
[2016-12-19 07:27] LABS: CALCIUM, SERUM 10.2 mg/dL (8.5-10.1); CREATININE 6.9 mg/dL (0.6-1.3)
[2016-12-19 08:00] VITALS: BP 111/52
[2016-12-19] MEDS: FAMOTIDINE/PF INJ 20 MG/2 ML VIAL IV SCH ×2 (08:21→20:55)
[2016-12-19] MEDS: LEVOTHYROXINE SODIUM 100 MCG TABLET PO SCH (08:21)
[2016-12-19] MEDS: SEVELAMER CARBONATE 0.8 GM POWD.PACK PO SCH ×3 (08:21→17:49)
[2016-12-19] MEDS: AMIODARONE HCL 200 MG TABLET PO SCH (08:22)
[2016-12-19] MEDS: BISOPROLOL FUMARATE 5 MG TABLET PO SCH (08:22)
[2016-12-19] MEDS: RENAL NOVASOURCE (8OZ) 1 EA BOX PO SCH ×3 (08:27→17:49)
[2016-12-19 12:00] VITALS: BP 99/41
[2016-12-19 16:00] VITALS: BP 101/48
[2016-12-19 20:00] VITALS: BP 111/46
[2016-12-20] VITALS (9 sets, daily range): BP systolic 86–109; BP diastolic 34–49
[2016-12-20] MEDS: PIPERACILLIN /TAZOBACTAM 2.25 G in IV D5W 50 ML IV SCH ×2 (01:31→13:47)
[2016-12-20] MEDS: IPRATROPIUM NEB FS 0.5 MG/2.5 ML AMPUL.NEB NEB SCH ×4 (01:36→19:34)
[2016-12-20 07:20] LABS: BASOPHILS # (AUTO) 0.1 /CMM (0.0-0.2); BASOPHILS % (AUTO) 0.5 % (0.0-2.0); EOSINOPHILS # (AUTO) 0.8 /CMM (0.0-0.7); EOSINOPHILS % (AUTO) 6.3 % (0.0-6.0); HEMATOCRIT 29 % (39-51); HEMOGLOBIN 9.6 g/dL (13.5-17.5); LYMPHOCYTES # (AUTO) 0.7 /CMM (0.8-4.8); MEAN CORPUSCULAR HEMOGLOBIN 32 PG (26.0-33.0); MEAN CORPUSCULAR HGB CONC 33 g/dl (31.0-36.0); MEAN CORPUSCULAR VOLUME 96 fL (80-96); MONOCYTES # (AUTO) 1.3 /CMM (0.1-1.30); MONOCYTES % (AUTO) 10.9 % (2.0-12.0); NEUTROPHILS # (AUTO) 9.2 /CMM (1.8-8.9); NEUTROPHILS % (AUTO) 76.3 % (43.0-81.0); RDW COEFFICIENT OF VARIATION 15.4 (11.5-15.0); RED BLOOD CELL COUNT(AUTO) 3.02 MIL/uL (4.5-6.0)
[2016-12-20 07:31] LABS: PLATELET COUNT (AUTO) 116 /CMM (150-450)
[2016-12-20 08:13] LABS: ALBUMIN 2.7 g/dL (3.4-5.0); BILIRUBIN,TOTAL 1.6 mg/dL (0.2-1.0); CALCIUM, SERUM 10.2 mg/dL (8.5-10.1); MAGNESIUM 2.7 mg/dL (1.8-2.4); PHOSPHORUS 5.1 mg/dL (2.5-4.9); POTASSIUM 4.3 mmol/L (3.5-5.1); TOTAL PROTEIN, SERUM 7.9 g/dL (6.4-8.2)
[2016-12-20] MEDS: FAMOTIDINE/PF INJ 20 MG/2 ML VIAL IV SCH ×2 (08:31→21:48)
[2016-12-20] MEDS: SEVELAMER CARBONATE 0.8 GM POWD.PACK PO SCH ×3 (08:31→17:35)
[2016-12-20] MEDS: LEVOTHYROXINE SODIUM 100 MCG TABLET PO SCH (08:31)
[2016-12-20] MEDS: RENAL NOVASOURCE (8OZ) 1 EA BOX PO SCH ×3 (08:31→17:35)
[2016-12-20] MEDS: BISOPROLOL FUMARATE 5 MG TABLET PO SCH (08:42)
[2016-12-20 09:58] LABS: INR 1.17 (0.87-1.13); PROTHROMBIN TIME 12.7 SECS (9.5-12.7)
[2016-12-20] MEDS ORDERED: SECONDARY IV SET 1 EA INFUS.SET MC ONE ×2 (10:06→17:41)
[2016-12-20] MEDS ORDERED: IV SET PRIMARY PUMP SET 1 EA INFUS.SET MC ONE (10:06)
[2016-12-20] MEDS: ALBUMIN 25% 25 GM in PREMIX 1 EA IV PRN ×2 (12:51→12:52)
[2016-12-20] MEDS ORDERED: FEE PK DOSING 1 MIN EA MC ONE (16:25)
[2016-12-20] MEDS ORDERED: GENTAMICIN 120 MG in IV D5W 100 ML IV ONE (17:30)
[2016-12-20] MEDS: ACETAMINOPHEN 650 MG/20.3 ML UDC PO PRN (17:53)
[2016-12-21] VITALS (7 sets, daily range): BP systolic 82–98; BP diastolic 27–49
[2016-12-21] MEDS: IPRATROPIUM NEB FS 0.5 MG/2.5 ML AMPUL.NEB NEB SCH ×4 (01:42→19:30)
[2016-12-21] MEDS: IV NS 0.9% 250 ML IV PRN (06:00)
[2016-12-21 07:25] LABS: CREATININE 6.1 mg/dL (0.6-1.3); POTASSIUM 3.6 mmol/L (3.5-5.1)
[2016-12-21] MEDS: RENAL NOVASOURCE (8OZ) 1 EA BOX PO SCH ×3 (08:15→17:36)
[2016-12-21] MEDS: LEVOTHYROXINE SODIUM 100 MCG TABLET PO SCH (08:16)
[2016-12-21] MEDS: FAMOTIDINE/PF INJ 20 MG/2 ML VIAL IV SCH ×2 (08:16→21:54)
[2016-12-21] MEDS: BISOPROLOL FUMARATE 5 MG TABLET PO SCH (08:20)
[2016-12-21] MEDS: SEVELAMER CARBONATE 0.8 GM POWD.PACK PO SCH ×3 (08:23→17:36)
[2016-12-22] VITALS: BP_SYST 94; BP_SYST 95; BP_DIAS 35; BP_DIAS 40
[2016-12-22] MEDS: IPRATROPIUM NEB FS 0.5 MG/2.5 ML AMPUL.NEB NEB SCH ×4 (01:30→21:15)
[2016-12-22 04:00] VITALS: BP 93/32
[2016-12-22] MEDS: LEVOTHYROXINE SODIUM 100 MCG TABLET PO SCH ×2 (06:53→09:13)
[2016-12-22 07:15] LABS: BASOPHILS # (AUTO) 0.1 /CMM (0.0-0.2); BASOPHILS % (AUTO) 1.3 % (0.0-2.0); EOSINOPHILS # (AUTO) 0.7 /CMM (0.0-0.7); EOSINOPHILS % (AUTO) 8.6 % (0.0-6.0); HEMATOCRIT 30 % (39-51); HEMOGLOBIN 9.8 g/dL (13.5-17.5); LYMPHOCYTES # (AUTO) 0.9 /CMM (0.8-4.8); MEAN CORPUSCULAR HEMOGLOBIN 32 PG (26.0-33.0); MEAN CORPUSCULAR HGB CONC 33 g/dl (31.0-36.0); MEAN CORPUSCULAR VOLUME 97 fL (80-96); MONOCYTES # (AUTO) 1.3 /CMM (0.1-1.30); MONOCYTES % (AUTO) 16.7 % (2.0-12.0); NEUTROPHILS # (AUTO) 4.8 /CMM (1.8-8.9); NEUTROPHILS % (AUTO) 62.4 % (43.0-81.0); PLATELET COUNT (AUTO) 143 /CMM (150-450); RDW COEFFICIENT OF VARIATION 15.2 (11.5-15.0); RED BLOOD CELL COUNT(AUTO) 3.06 MIL/uL (4.5-6.0); WHITE BLOOD COUNT (AUTO) 7.7 K/uL (4.3-11.0)
[2016-12-22 07:42] LABS: EOSINOPHILS % (MANUAL) 7 % (0-4); LYMPHOCYTES % (MANUAL) 10 % (16-48); MONOCYTES % (MANUAL) 17 % (0-11.0); NEUTROPHILS % (MANUAL) 66 (42-76)
[2016-12-22 08:00] VITALS: BP 88/58
[2016-12-22] MEDS: RENAL NOVASOURCE (8OZ) 1 EA BOX PO SCH ×3 (08:00→17:40)
[2016-12-22] MEDS: BISOPROLOL FUMARATE 5 MG TABLET PO SCH (09:00)
[2016-12-22] MEDS: FAMOTIDINE/PF INJ 20 MG/2 ML VIAL IV SCH ×2 (09:12→21:06)
[2016-12-22] MEDS: SEVELAMER CARBONATE 0.8 GM POWD.PACK PO SCH ×3 (09:13→17:40)
[2016-12-22 12:00] VITALS: BP 90/58
[2016-12-22 16:00] VITALS: BP 81/33
[2016-12-22 20:00] VITALS: BP 96/42
[2016-12-23] VITALS: BP 99/49
[2016-12-23] MEDS: VANCOMYCIN 500 MG in IV D5W 100 ML IV PRN (00:38)
[2016-12-23] MEDS: IPRATROPIUM NEB FS 0.5 MG/2.5 ML AMPUL.NEB NEB SCH ×4 (01:38→22:05)
[2016-12-23 04:00] VITALS: BP 91/34
[2016-12-23 07:11] LABS: BASOPHILS # (AUTO) 0.1 /CMM (0.0-0.2); BASOPHILS % (AUTO) 1.4 % (0.0-2.0); EOSINOPHILS # (AUTO) 0.5 /CMM (0.0-0.7); EOSINOPHILS % (AUTO) 7.4 % (0.0-6.0); HEMATOCRIT 30 % (39-51); HEMOGLOBIN 10.4 g/dL (13.5-17.5); LYMPHOCYTES # (AUTO) 0.9 /CMM (0.8-4.8); LYMPHOCYTES % (AUTO) 12.6 % (20.0-44.0); MEAN CORPUSCULAR HEMOGLOBIN 34 PG (26.0-33.0); MEAN CORPUSCULAR HGB CONC 35 g/dl (31.0-36.0); MEAN CORPUSCULAR VOLUME 99 fL (80-96); MONOCYTES # (AUTO) 1.3 /CMM (0.1-1.30); MONOCYTES % (AUTO) 18.4 % (2.0-12.0); NEUTROPHILS # (AUTO) 4.4 /CMM (1.8-8.9); NEUTROPHILS % (AUTO) 60.2 % (43.0-81.0); PLATELET COUNT (AUTO) 154 /CMM (150-450); RDW COEFFICIENT OF VARIATION 15.8 (11.5-15.0); RED BLOOD CELL COUNT(AUTO) 3.05 MIL/uL (4.5-6.0); WHITE BLOOD COUNT (AUTO) 7.2 K/uL (4.3-11.0)
[2016-12-23 08:00] VITALS: BP 99/47
[2016-12-23] MEDS: RENAL NOVASOURCE (8OZ) 1 EA BOX PO SCH ×3 (09:35→16:41)
[2016-12-23] MEDS: SEVELAMER CARBONATE 0.8 GM POWD.PACK PO SCH ×3 (09:35→17:02)
[2016-12-23] MEDS: FAMOTIDINE/PF INJ 20 MG/2 ML VIAL IV SCH ×2 (09:35→21:22)
[2016-12-23] MEDS: GENTAMICIN 100 MG in IV D5W 100 ML IV PRN (09:35)
[2016-12-23] MEDS: BISOPROLOL FUMARATE 5 MG TABLET PO SCH (09:38)
[2016-12-23 10:05] LABS: BAND % (MANUAL) 2 % (0.0-5.0); EOSINOPHILS % (MANUAL) 3 % (0-4); LYMPHOCYTES % (MANUAL) 14 % (16-48); MONOCYTES % (MANUAL) 17 % (0-11.0); NEUTROPHILS % (MANUAL) 64 (42-76)
[2016-12-23 16:00] VITALS: BP 80/27
[2016-12-23 16:39] VITALS: BP 85/33
[2016-12-23 20:00] VITALS: BP 96/44
[2016-12-24] MEDS: IPRATROPIUM NEB FS 0.5 MG/2.5 ML AMPUL.NEB NEB SCH ×4 (02:53→19:14)
[2016-12-24 04:00] VITALS: BP 97/40
[2016-12-24 07:24] LABS: CALCIUM, SERUM 9.9 mg/dL (8.5-10.1); MAGNESIUM 2.8 mg/dL (1.8-2.4); PHOSPHORUS 6.8 mg/dL (2.5-4.9); POTASSIUM 4.3 mmol/L (3.5-5.1)
[2016-12-24 07:50] LABS: CREATININE 8.6 mg/dL (0.6-1.3)
[2016-12-24 07:56] LABS: BASOPHILS # (AUTO) 0.1 /CMM (0.0-0.2); BASOPHILS % (AUTO) 1.4 % (0.0-2.0); EOSINOPHILS # (AUTO) 0.6 /CMM (0.0-0.7); EOSINOPHILS % (AUTO) 7.8 % (0.0-6.0); HEMATOCRIT 29 % (39-51); HEMOGLOBIN 10.4 g/dL (13.5-17.5); LYMPHOCYTES # (AUTO) 1.1 /CMM (0.8-4.8); LYMPHOCYTES % (AUTO) 15.6 % (20.0-44.0); MEAN CORPUSCULAR HEMOGLOBIN 35 PG (26.0-33.0); MEAN CORPUSCULAR HGB CONC 36 g/dl (31.0-36.0); MEAN CORPUSCULAR VOLUME 99 fL (80-96); MONOCYTES # (AUTO) 1.2 /CMM (0.1-1.30); NEUTROPHILS # (AUTO) 4.3 /CMM (1.8-8.9); NEUTROPHILS % (AUTO) 58.2 % (43.0-81.0); PLATELET COUNT (AUTO) 160 /CMM (150-450); RDW COEFFICIENT OF VARIATION 14.5 (11.5-15.0); RED BLOOD CELL COUNT(AUTO) 2.94 MIL/uL (4.5-6.0); WHITE BLOOD COUNT (AUTO) 7.4 K/uL (4.3-11.0)
[2016-12-24 08:02] LABS: GENTAMICIN,RANDOM 5.4 ug/ml (4.0-8.0)
[2016-12-24] MEDS: LEVOTHYROXINE SODIUM 100 MCG TABLET PO SCH (08:44)
[2016-12-24] MEDS: FAMOTIDINE/PF INJ 20 MG/2 ML VIAL IV SCH ×2 (08:45→21:08)
[2016-12-24] MEDS: RENAL NOVASOURCE (8OZ) 1 EA BOX PO SCH ×3 (08:46→17:01)
[2016-12-24] MEDS: SEVELAMER CARBONATE 0.8 GM POWD.PACK PO SCH (08:46)
[2016-12-24] MEDS: BISOPROLOL FUMARATE 5 MG TABLET PO SCH (08:46)
[2016-12-24 11:09] LABS: BAND % (MANUAL) 2 % (0.0-5.0); EOSINOPHILS % (MANUAL) 9 % (0-4); LYMPHOCYTES % (MANUAL) 9 % (16-48); MONOCYTES % (MANUAL) 17 % (0-11.0); NEUTROPHILS % (MANUAL) 63 (42-76)
[2016-12-24] MEDS: ACETAMINOPHEN 650 MG/20.3 ML UDC PO PRN (11:59)
[2016-12-24] MEDS: SEVELAMER CARBONATE 800 MG TABLET PO SCH ×2 (12:00→17:04)
[2016-12-24] MEDS ORDERED: SECONDARY IV SET 1 EA INFUS.SET MC ONE (12:45)
[2016-12-24] MEDS: ALBUMIN 25% 25 GM in PREMIX 1 EA IV PRN (12:48)
[2016-12-24] MEDS: VANCOMYCIN 500 MG in IV D5W 100 ML IV PRN (15:39)
[2016-12-24] MEDS: GENTAMICIN 100 MG in IV D5W 100 ML IV PRN (15:40)
[2016-12-24] MEDS ORDERED: LORAZEPAM INJ 2 MG/ML VIAL IV PRN (16:00)
[2016-12-24 20:00] VITALS: BP 97/57
[2016-12-25] MEDS: IPRATROPIUM NEB FS 0.5 MG/2.5 ML AMPUL.NEB NEB SCH ×4 (00:45→20:02)
[2016-12-25 04:00] VITALS: BP 86/47
[2016-12-25 06:55] LABS: BASOPHILS # (AUTO) 0.1 /CMM (0.0-0.2); BASOPHILS % (AUTO) 2.1 % (0.0-2.0); EOSINOPHILS # (AUTO) 0.5 /CMM (0.0-0.7); EOSINOPHILS % (AUTO) 7.5 % (0.0-6.0); HEMATOCRIT 29 % (39-51); HEMOGLOBIN 9.9 g/dL (13.5-17.5); LYMPHOCYTES # (AUTO) 0.9 /CMM (0.8-4.8); LYMPHOCYTES % (AUTO) 13.5 % (20.0-44.0); MEAN CORPUSCULAR HEMOGLOBIN 35 PG (26.0-33.0); MEAN CORPUSCULAR HGB CONC 35 g/dl (31.0-36.0); MEAN CORPUSCULAR VOLUME 100 fL (80-96); MONOCYTES # (AUTO) 1.2 /CMM (0.1-1.30); MONOCYTES % (AUTO) 17.4 % (2.0-12.0); NEUTROPHILS % (AUTO) 59.5 % (43.0-81.0); PLATELET COUNT (AUTO) 154 /CMM (150-450); RDW COEFFICIENT OF VARIATION 15.2 (11.5-15.0); RED BLOOD CELL COUNT(AUTO) 2.86 MIL/uL (4.5-6.0); WHITE BLOOD COUNT (AUTO) 6.8 K/uL (4.3-11.0)
[2016-12-25 07:17] LABS: CALCIUM, SERUM 9.9 mg/dL (8.5-10.1); CREATININE 6.3 mg/dL (0.6-1.3); MAGNESIUM 2.6 mg/dL (1.8-2.4); PHOSPHORUS 5.3 mg/dL (2.5-4.9); POTASSIUM 4.3 mmol/L (3.5-5.1)
[2016-12-25 08:00] VITALS: BP 90/42
[2016-12-25] MEDS: FAMOTIDINE/PF INJ 20 MG/2 ML VIAL IV SCH ×2 (08:15→20:42)
[2016-12-25] MEDS: SEVELAMER CARBONATE 800 MG TABLET PO SCH ×3 (08:15→17:11)
[2016-12-25] MEDS: LEVOTHYROXINE SODIUM 100 MCG TABLET PO SCH (08:15)
[2016-12-25] MEDS: RENAL NOVASOURCE (8OZ) 1 EA BOX PO SCH ×3 (08:15→16:18)
[2016-12-25] MEDS: BISOPROLOL FUMARATE 5 MG TABLET PO SCH (08:15)
[2016-12-25 08:41] LABS: EOSINOPHILS % (MANUAL) 9 % (0-4); LYMPHOCYTES % (MANUAL) 15 % (16-48); MONOCYTES % (MANUAL) 15 % (0-11.0); NEUTROPHILS % (MANUAL) 61 (42-76)
[2016-12-25 16:00] VITALS: BP 88/42
[2016-12-25 20:00] VITALS: BP 91/41
[2016-12-26] MEDS: IPRATROPIUM NEB FS 0.5 MG/2.5 ML AMPUL.NEB NEB SCH ×4 (01:15→19:48)
[2016-12-26 04:00] VITALS: BP 91/41
[2016-12-26] MEDS: LEVOTHYROXINE SODIUM 100 MCG TABLET PO SCH ×2 (07:03→08:16)
[2016-12-26 07:06] LABS: BASOPHILS # (AUTO) 0.2 /CMM (0.0-0.2); BASOPHILS % (AUTO) 3.6 % (0.0-2.0); EOSINOPHILS # (AUTO) 0.5 /CMM (0.0-0.7); EOSINOPHILS % (AUTO) 8.2 % (0.0-6.0); HEMATOCRIT 28 % (39-51); HEMOGLOBIN 9.5 g/dL (13.5-17.5); LYMPHOCYTES % (AUTO) 15.1 % (20.0-44.0); MEAN CORPUSCULAR HEMOGLOBIN 33 PG (26.0-33.0); MEAN CORPUSCULAR HGB CONC 34 g/dl (31.0-36.0); MEAN CORPUSCULAR VOLUME 96 fL (80-96); MONOCYTES # (AUTO) 1.2 /CMM (0.1-1.30); MONOCYTES % (AUTO) 17.6 % (2.0-12.0); NEUTROPHILS # (AUTO) 3.7 /CMM (1.8-8.9); NEUTROPHILS % (AUTO) 55.5 % (43.0-81.0); PLATELET COUNT (AUTO) 140 /CMM (150-450); RDW COEFFICIENT OF VARIATION 15.9 (11.5-15.0); WHITE BLOOD COUNT (AUTO) 6.6 K/uL (4.3-11.0)
[2016-12-26 07:45] LABS: BAND % (MANUAL) 1 % (0.0-5.0); EOSINOPHILS % (MANUAL) 8 % (0-4); LYMPHOCYTES % (MANUAL) 13 % (16-48); MONOCYTES % (MANUAL) 14 % (0-11.0); NEUTROPHILS % (MANUAL) 64 (42-76)
[2016-12-26 08:00] VITALS: BP 91/39
[2016-12-26] MEDS: RENAL NOVASOURCE (8OZ) 1 EA BOX PO SCH ×3 (08:16→16:55)
[2016-12-26] MEDS: SEVELAMER CARBONATE 800 MG TABLET PO SCH ×3 (08:16→16:55)
[2016-12-26] MEDS: FAMOTIDINE/PF INJ 20 MG/2 ML VIAL IV SCH ×2 (08:17→21:19)
[2016-12-26] MEDS: BISOPROLOL FUMARATE 5 MG TABLET PO SCH (08:18)
[2016-12-26 16:00] VITALS: BP 87/41
[2016-12-26 20:00] VITALS: BP 86/50
[2016-12-27] MEDS: IPRATROPIUM NEB FS 0.5 MG/2.5 ML AMPUL.NEB NEB SCH ×4 (00:58→19:55)
[2016-12-27 04:00] VITALS: BP 131/46
[2016-12-27 06:51] LABS: BASOPHILS # (AUTO) 0.1 /CMM (0.0-0.2); BASOPHILS % (AUTO) 1.7 % (0.0-2.0); EOSINOPHILS # (AUTO) 0.4 /CMM (0.0-0.7); EOSINOPHILS % (AUTO) 6.8 % (0.0-6.0); HEMATOCRIT 31 % (39-51); HEMOGLOBIN 10.2 g/dL (13.5-17.5); LYMPHOCYTES # (AUTO) 0.8 /CMM (0.8-4.8); LYMPHOCYTES % (AUTO) 13.6 % (20.0-44.0); MEAN CORPUSCULAR HEMOGLOBIN 31 PG (26.0-33.0); MEAN CORPUSCULAR HGB CONC 33 g/dl (31.0-36.0); MEAN CORPUSCULAR VOLUME 95 fL (80-96); MONOCYTES % (AUTO) 16.8 % (2.0-12.0); NEUTROPHILS # (AUTO) 3.5 /CMM (1.8-8.9); NEUTROPHILS % (AUTO) 61.1 % (43.0-81.0); PLATELET COUNT (AUTO) 116 /CMM (150-450); RDW COEFFICIENT OF VARIATION 15.4 (11.5-15.0); RED BLOOD CELL COUNT(AUTO) 3.26 MIL/uL (4.5-6.0); WHITE BLOOD COUNT (AUTO) 5.8 K/uL (4.3-11.0)
[2016-12-27 08:00] VITALS: BP 95/38
[2016-12-27] MEDS: BISOPROLOL FUMARATE 5 MG TABLET PO SCH (09:00)
[2016-12-27] MEDS ORDERED: LACTULOSE 10 G/15 ML UDC (PYXIS) PO PRN (09:00)
[2016-12-27] MEDS: FAMOTIDINE/PF INJ 20 MG/2 ML VIAL IV SCH ×2 (10:09→20:52)
[2016-12-27] MEDS: SEVELAMER CARBONATE 800 MG TABLET PO SCH ×3 (10:10→17:32)
[2016-12-27] MEDS: RENAL NOVASOURCE (8OZ) 1 EA BOX PO SCH ×3 (10:10→17:32)
[2016-12-27] MEDS: VANCOMYCIN 500 MG in IV D5W 100 ML IV PRN (11:51)
[2016-12-27] MEDS ORDERED: IV SET PRIMARY PUMP SET 1 EA INFUS.SET MC ONE (12:23)
[2016-12-27] MEDS: GENTAMICIN 100 MG in IV D5W 100 ML IV PRN (12:39)
[2016-12-27 16:00] VITALS: BP 88/32
[2016-12-27 20:00] VITALS: BP 92/49
[2016-12-28] MEDS: IPRATROPIUM NEB FS 0.5 MG/2.5 ML AMPUL.NEB NEB SCH ×4 (01:33→20:16)
[2016-12-28 04:00] VITALS: BP 96/46
[2016-12-28] MEDS: LEVOTHYROXINE SODIUM 100 MCG TABLET PO SCH ×2 (06:47→08:54)
[2016-12-28 07:43] LABS: HEMATOCRIT 32 % (39-51); HEMOGLOBIN 10.4 g/dL (13.5-17.5); LYMPHOCYTES # (AUTO) 0.4 /CMM (0.8-4.8); LYMPHOCYTES % (AUTO) 4.3 % (20.0-44.0); MEAN CORPUSCULAR HEMOGLOBIN 28 PG (26.0-33.0); MEAN CORPUSCULAR HGB CONC 32 g/dl (31.0-36.0); MEAN CORPUSCULAR VOLUME 87 fL (80-96); MONOCYTES # (AUTO) 0.3 /CMM (0.1-1.30); MONOCYTES % (AUTO) 2.7 % (2.0-12.0); NEUTROPHILS # (AUTO) 9.2 /CMM (1.8-8.9); PLATELET COUNT (AUTO) 232 /CMM (150-450); RDW COEFFICIENT OF VARIATION 15.6 (11.5-15.0); RED BLOOD CELL COUNT(AUTO) 3.67 MIL/uL (4.5-6.0); WHITE BLOOD COUNT (AUTO) 9.9 K/uL (4.3-11.0)
[2016-12-28 08:07] LABS: CALCIUM, SERUM 9.1 mg/dL (8.5-10.1); CREATININE 1.8 mg/dL (0.6-1.3); POTASSIUM 4.4 mmol/L (3.5-5.1)
[2016-12-28] MEDS: FAMOTIDINE/PF INJ 20 MG/2 ML VIAL IV SCH ×2 (08:54→21:32)
[2016-12-28] MEDS: SEVELAMER CARBONATE 800 MG TABLET PO SCH ×3 (08:54→16:46)
[2016-12-28] MEDS: BISOPROLOL FUMARATE 5 MG TABLET PO SCH (08:54)
[2016-12-28] MEDS: RENAL NOVASOURCE (8OZ) 1 EA BOX PO SCH ×3 (08:55→17:37)
[2016-12-28 12:00] VITALS: BP 92/48
[2016-12-28] MEDS ORDERED: VANCOMYCIN 1 GM in IV D5W 250 ML IV ONE (17:00)
[2016-12-28] MEDS ORDERED: GENTAMICIN 120 MG in IV D5W 100 ML IV ONE (18:00)
[2016-12-28] MEDS ORDERED: IV SET PRIMARY PUMP SET 1 EA INFUS.SET MC ONE (19:48)
[2016-12-28] MEDS ORDERED: IV NS 0.9% 250 ML IV ONE (19:48)
[2016-12-28 20:00] VITALS: BP_SYST 83; BP_SYST 93; BP_DIAS 38; BP_DIAS 44
[2016-12-29] MEDS: IPRATROPIUM NEB FS 0.5 MG/2.5 ML AMPUL.NEB NEB SCH ×4 (02:11→19:46)
[2016-12-29 04:00] VITALS: BP 88/37
[2016-12-29 07:45] LABS: BASOPHILS # (AUTO) 0.2 /CMM (0.0-0.2); BASOPHILS % (AUTO) 2.7 % (0.0-2.0); EOSINOPHILS # (AUTO) 0.4 /CMM (0.0-0.7); EOSINOPHILS % (AUTO) 5.8 % (0.0-6.0); HEMATOCRIT 27 % (39-51); HEMOGLOBIN 9.3 g/dL (13.5-17.5); LYMPHOCYTES % (AUTO) 16.2 % (20.0-44.0); MEAN CORPUSCULAR HEMOGLOBIN 35 PG (26.0-33.0); MEAN CORPUSCULAR HGB CONC 35 g/dl (31.0-36.0); MEAN CORPUSCULAR VOLUME 100 fL (80-96); MONOCYTES # (AUTO) 1.2 /CMM (0.1-1.30); MONOCYTES % (AUTO) 18.5 % (2.0-12.0); NEUTROPHILS # (AUTO) 3.6 /CMM (1.8-8.9); NEUTROPHILS % (AUTO) 56.8 % (43.0-81.0); PLATELET COUNT (AUTO) 117 /CMM (150-450); RDW COEFFICIENT OF VARIATION 15.2 (11.5-15.0); RED BLOOD CELL COUNT(AUTO) 2.69 MIL/uL (4.5-6.0); WHITE BLOOD COUNT (AUTO) 6.4 K/uL (4.3-11.0)
[2016-12-29 07:54] LABS: CALCIUM, SERUM 9.4 mg/dL (8.5-10.1); CREATININE 5.7 mg/dL (0.6-1.3); POTASSIUM 4.9 mmol/L (3.5-5.1)
[2016-12-29 08:00] VITALS: BP 88/45
[2016-12-29 08:59] LABS: EOSINOPHILS % (MANUAL) 4 % (0-4); LYMPHOCYTES % (MANUAL) 12 % (16-48); MONOCYTES % (MANUAL) 17 % (0-11.0); NEUTROPHILS % (MANUAL) 67 (42-76)
[2016-12-29] MEDS: BISOPROLOL FUMARATE 5 MG TABLET PO SCH (09:00)
[2016-12-29] MEDS: SEVELAMER CARBONATE 800 MG TABLET PO SCH ×3 (09:09→18:42)
[2016-12-29] MEDS: RENAL NOVASOURCE (8OZ) 1 EA BOX PO SCH ×3 (09:09→18:42)
[2016-12-29] MEDS: FAMOTIDINE/PF INJ 20 MG/2 ML VIAL IV SCH ×2 (09:10→21:38)
[2016-12-29 16:00] VITALS: BP 84/34
[2016-12-30] MEDS: IPRATROPIUM NEB FS 0.5 MG/2.5 ML AMPUL.NEB NEB SCH ×5 (01:16→20:18)
[2016-12-30 04:00] VITALS: BP 102/67
[2016-12-30 07:07] LABS: BASOPHILS # (AUTO) 0.2 /CMM (0.0-0.2); BASOPHILS % (AUTO) 2.7 % (0.0-2.0); EOSINOPHILS # (AUTO) 0.5 /CMM (0.0-0.7); HEMATOCRIT 26 % (39-51); LYMPHOCYTES # (AUTO) 0.9 /CMM (0.8-4.8); LYMPHOCYTES % (AUTO) 15.7 % (20.0-44.0); MEAN CORPUSCULAR HEMOGLOBIN 34 PG (26.0-33.0); MEAN CORPUSCULAR HGB CONC 35 g/dl (31.0-36.0); MEAN CORPUSCULAR VOLUME 98 fL (80-96); MONOCYTES # (AUTO) 1.1 /CMM (0.1-1.30); MONOCYTES % (AUTO) 18.2 % (2.0-12.0); NEUTROPHILS # (AUTO) 3.3 /CMM (1.8-8.9); NEUTROPHILS % (AUTO) 55.4 % (43.0-81.0); PLATELET COUNT (AUTO) 98 /CMM (150-450); RDW COEFFICIENT OF VARIATION 15.1 (11.5-15.0); RED BLOOD CELL COUNT(AUTO) 2.63 MIL/uL (4.5-6.0)
[2016-12-30 07:18] LABS: CALCIUM, SERUM 9.4 mg/dL (8.5-10.1); CREATININE 6.9 mg/dL (0.6-1.3); POTASSIUM 4.8 mmol/L (3.5-5.1)
[2016-12-30] MEDS: LEVOTHYROXINE SODIUM 100 MCG TABLET PO SCH (07:57)
[2016-12-30 08:00] VITALS: BP 89/44
[2016-12-30 08:01] LABS: GENTAMICIN,TROUGH 5.5 ug/ml (0.2-2.0)
[2016-12-30] MEDS: RENAL NOVASOURCE (8OZ) 1 EA BOX PO SCH ×3 (08:19→17:13)
[2016-12-30] MEDS: SEVELAMER CARBONATE 800 MG TABLET PO SCH ×3 (08:19→17:13)
[2016-12-30] MEDS: BISOPROLOL FUMARATE 5 MG TABLET PO SCH ×3 (08:20→09:00)
[2016-12-30] MEDS: FAMOTIDINE/PF INJ 20 MG/2 ML VIAL IV SCH ×2 (08:21→22:57)
[2016-12-30 08:57] LABS: BAND % (MANUAL) 1 % (0.0-5.0); EOSINOPHILS % (MANUAL) 4 % (0-4); LYMPHOCYTES % (MANUAL) 11 % (16-48); MONOCYTES % (MANUAL) 17 % (0-11.0); NEUTROPHILS % (MANUAL) 67 (42-76)
[2016-12-30 16:00] VITALS: BP 92/47
[2016-12-30 20:00] VITALS: BP 90/47
[2016-12-31] VITALS: BP 91/47
[2016-12-31] MEDS: IPRATROPIUM NEB FS 0.5 MG/2.5 ML AMPUL.NEB NEB SCH ×3 (01:30→13:30)
[2016-12-31 04:00] VITALS: BP 100/38
[2016-12-31 07:21] LABS: BASOPHILS # (AUTO) 0.1 /CMM (0.0-0.2); BASOPHILS % (AUTO) 1.6 % (0.0-2.0); EOSINOPHILS # (AUTO) 0.4 /CMM (0.0-0.7); EOSINOPHILS % (AUTO) 7.8 % (0.0-6.0); HEMATOCRIT 28 % (39-51); HEMOGLOBIN 9.1 g/dL (13.5-17.5); LYMPHOCYTES # (AUTO) 0.7 /CMM (0.8-4.8); LYMPHOCYTES % (AUTO) 13.9 % (20.0-44.0); MEAN CORPUSCULAR HEMOGLOBIN 31 PG (26.0-33.0); MEAN CORPUSCULAR HGB CONC 33 g/dl (31.0-36.0); MEAN CORPUSCULAR VOLUME 95 fL (80-96); MONOCYTES % (AUTO) 19.5 % (2.0-12.0); NEUTROPHILS # (AUTO) 3.1 /CMM (1.8-8.9); NEUTROPHILS % (AUTO) 57.2 % (43.0-81.0); PLATELET COUNT (AUTO) 90 /CMM (150-450); RED BLOOD CELL COUNT(AUTO) 2.93 MIL/uL (4.5-6.0); WHITE BLOOD COUNT (AUTO) 5.3 K/uL (4.3-11.0)
[2016-12-31 07:47] LABS: CALCIUM, SERUM 9.4 mg/dL (8.5-10.1); CREATININE 5.3 mg/dL (0.6-1.3); POTASSIUM 4.3 mmol/L (3.5-5.1)
[2016-12-31 08:00] VITALS: BP 100/44
[2016-12-31 08:26] VITALS: BP 100/44
[2016-12-31] MEDS: FAMOTIDINE/PF INJ 20 MG/2 ML VIAL IV SCH (08:26)
[2016-12-31] MEDS: BISOPROLOL FUMARATE 5 MG TABLET PO SCH (08:26)
[2016-12-31] MEDS: LEVOTHYROXINE SODIUM 100 MCG TABLET PO SCH (08:27)
[2016-12-31] MEDS: SEVELAMER CARBONATE 800 MG TABLET PO SCH ×2 (08:27→12:36)
[2016-12-31] MEDS: RENAL NOVASOURCE (8OZ) 1 EA BOX PO SCH ×2 (08:27→12:01)
[2016-12-31 09:05] LABS: EOSINOPHILS % (MANUAL) 7 % (0-4); LYMPHOCYTES % (MANUAL) 16 % (16-48); MONOCYTES % (MANUAL) 15 % (0-11.0); NEUTROPHILS % (MANUAL) 62 (42-76)
[2016-12-31] MEDS ORDERED: MUPIROCIN OINT 2% 22 GM TUBE SCH (10:00)
== END 2016-12-31 14:50 | disposition home or self-care (01) | DRG 720 ==
LOC: ER 12:34 → TELE-TD 14:51 → ICU 12-08 06:24 → TELE-TD 12-17 15:30 → TELE1 12-19 11:09 → MEDSG1 12-23 01:17
PROVIDERS: ADMIT Internal Medicine; ATTEND Internal Medicine
PROC: 02HV33Z Insertion of Infusion Device into Superior Vena Cava, Percutaneous Approach (ICD-10-PCS; principal; 2016-12-08 08:55)
PROC: 5A1945Z Respiratory Ventilation, 24-96 Consecutive Hours (ICD-10-PCS; principal; 2016-12-08 08:55)
PROC: 5A12012 Performance of Cardiac Output, Single, Manual (ICD-10-PCS; principal; 2016-12-08 08:55)
PROC: 0BH17EZ Insertion of Endotracheal Airway into Trachea, Via Natural or Artificial Opening (ICD-10-PCS; principal; 2016-12-08 08:55)
PROC: B548ZZA Ultrasonography of Superior Vena Cava, Guidance (ICD-10-PCS; principal; 2016-12-08 08:55)
PROC: 0DB68ZX Excision of Stomach, Via Natural or Artificial Opening Endoscopic, Diagnostic (ICD-10-PCS; principal; 2016-12-08 08:55)
DX: A41.9 Sepsis, unspecified organism (principal); J96.01 Acute respiratory failure with hypoxia; R65.21 Severe sepsis with septic shock; J69.0 Pneumonitis due to inhalation of food and vomit; I33.0 Acute and subacute infective endocarditis; G92 Toxic encephalopathy; I50.23 Acute on chronic systolic (congestive) heart failure; R18.8 Other ascites; J15.0 Pneumonia due to Klebsiella pneumoniae; I47.2 Ventricular tachycardia; N18.6 End stage renal disease; I42.9 Cardiomyopathy, unspecified; K74.60 Unspecified cirrhosis of liver; I48.91 Unspecified atrial fibrillation; Z99.2 Dependence on renal dialysis; E03.9 Hypothyroidism, unspecified; J44.9 Chronic obstructive pulmonary disease, unspecified; Z82.49 Family history of ischemic heart disease and other diseases of the circulatory system; D64.9 Anemia, unspecified; D69.6 Thrombocytopenia, unspecified; E87.1 Hypo-osmolality and hyponatremia; J44.0 Chronic obstructive pulmonary disease with (acute) lower respiratory infection; I46.9 Cardiac arrest, cause unspecified; E83.9 Disorder of mineral metabolism, unspecified; I35.1 Nonrheumatic aortic (valve) insufficiency; I34.0 Nonrheumatic mitral (valve) insufficiency; K20.9 Esophagitis, unspecified; T82.897A Other specified complication of cardiac prosthetic devices, implants and grafts, initial encounter; Y83.9 Surgical procedure, unspecified as the cause of abnormal reaction of the patient, or of later complication, without mention of misadventure at the time of the procedure; Y92.129 Unspecified place in nursing home as the place of occurrence of the external cause; K25.9 Gastric ulcer, unspecified as acute or chronic, without hemorrhage or perforation; I13.2 Hypertensive heart and chronic kidney disease with heart failure and with stage 5 chronic kidney disease, or end stage renal disease
CPT/HCPCS: 31720; 36415; 36569; 36600; 70450-TC; 71010-TC; 76942-TC; 80048-TC; 80053-TC; 80061-TC; 80076-TC; 80162-TC; 80170-TC; 80202-TC; 82140-TC; 82803-TC; 83735-TC; 84100-TC; 84443-TC; 84484-TC; 85025-TC; 85396; 85610-TC; 85730-TC; 87040-TC; 87070-TC; 87081-TC; 87186-TC; 88305-TC; 88313-TC; 88342; 90935-TC; 92526; 92611-TC; 93307-TC; 93312-TC; 94002-TC; 94003-TC; 94762-TC; 94799-TC; 97001-TC; 97110-TC; 97116-TC; 97530-TC; 99082-TC; A4216; A4606; A6402; C1751; C9113; J0153; J0282; J0461; J0885; J1160; J1580; J1940; J2060; J2370; J2543; J2704; J3370; J3490; J7030; J7040; J7050; J7060; P9047; Z7610